=== PATIENT | male | born 1975 | race Caucasian/White ===

== ENCOUNTER 2022-05-08 12:39 | Emergency (ER) | payer BC ==
[~2022-05-08] VITALS: Ht 152.4 cm; Wt 122.7 kg
[~2022-05-08 12:39] MED LIST: NO HOME MEDICATIONS
[2022-05-08 14:46] LABS: COLLECTION METHOD CLEAN CATCH
[2022-05-08 15:01] LABS: MUCOUS Present (NOT PRESENT); SQUAMOUS EPITHELIAL 0-2 /hpf (0-10); URINE BACTERIA None Seen /hpf (NONE SEEN); URINE RBC 0-2 /hpf (0-2)
[2022-05-08 15:02] LABS: URINE APPEARANCE Clear (CLEAR/HAZY); URINE COLOR Yellow (YELLOW)
[2022-05-08 15:03] LABS: URINE BLOOD Negative (NEGATIVE); URINE GLUCOSE Negative (NEGATIVE); URINE KETONE 1+ (NEGATIVE); URINE NITRATE Negative (NEGATIVE); URINE PROTEIN(semi-quant) Negative (NEGATIVE)
[2022-05-08 15:11] LABS: BASO % 0.1 % (0.0-2.0); GRAN # 14.9 K/mm3 (1.4-6.5); GRAN % 86.9 % (42.2-75.2); HEMOGLOBIN 15.6 g/dl (13.5-18.0); LYMPH # 0.9 K/mm3 (1.2-3.4); LYMPH % 5.3 % (20.0-51.0); MEAN CELL VOLUME 88 fl (80.0-100.0); MEAN CORPUSCULAR HEMOGLOBIN 30 pg (27-31); MEAN CORPUSCULAR HGB CONC 34 g/dl (33.0-37.0); MEAN PLATELET VOLUME 12.5 fl (7.4-10.4); MONO # 1.2 K/mm3 (0.1-0.6); MONO % 7.2 % (1.7-9.3); PLATELET COUNT 159 K/mm3 (130-400); RED BLOOD COUNT 5.25 M/mm3 (4.20-5.60)
[2022-05-08 15:23] LABS: ALBUMIN 4.1 gm/dL (3.5-5.0); BILIRUBIN,TOTAL 1.8 mg/dL (0.2-1.2); CALCIUM 9.6 mg/dL (8.4-10.2); CREATININE, serum 0.91 mg/dL (0.72-1.25); POTASSIUM 3.9 mmol/L (3.5-4.5); TOTAL PROTEIN 7.9 gm/dL (6.2-8.1)
[2022-05-08] MEDS ORDERED: CIPRO 500MG TA500 MG PO (16:44)
[2022-05-08] MEDS ORDERED: ROXICODONE 55 MG/TAB PO (16:44)
[2022-05-08] MEDS ORDERED: FLAGYL500 MG PO (16:44)
[2022-05-08 17:40] VITALS: BP 145/61; PULSE 82; TEMP 100.2
== END 2022-05-08 17:45 | disposition home or self-care (01) ==
LOC: COL.ER 12:39
PROVIDERS: Emergency Medicine
DX: K57.92 Diverticulitis of intestine, part unspecified, without perforation or abscess without bleeding (principal); K76.9 Liver disease, unspecified
CPT/HCPCS: J0696; J2270; J7120; Q9967

== ENCOUNTER → 2022-05-14 | Outpatient (CLI) | payer BC ==
[~2022-05-14] MED LIST changes: +CIPRO 500MG TA500 MG PO; +FLAGYL500 MG PO; +ROXICODONE 55 MG/TAB PO
[2022-05-14 12:06] LABS: C-REACTIVE PROTEIN 9.57 mg/dL (0.00-0.50); CALCIUM 9.3 mg/dL (8.4-10.2); CREATININE, serum 0.84 mg/dL (0.72-1.25)
[2022-05-14 13:41] LABS: HEMOGLOBIN 14.1 g/dl (13.5-18.0); MEAN CELL VOLUME 89 fl (80.0-100.0); MEAN CORPUSCULAR HEMOGLOBIN 29 pg (27-31); MEAN CORPUSCULAR HGB CONC 33 g/dl (33.0-37.0); MEAN PLATELET VOLUME 10.8 fl (7.4-10.4); PLATELET COUNT 258 K/mm3 (130-400); RED BLOOD COUNT 4.83 M/mm3 (4.20-5.60)
[2022-05-14 14:07] LABS: EOSINOPHIL 1 % (0-4); LYMPHOCYTE 12 % (20.0-51.0); METAMYELOCYTE 1 % (0-0); NEUTROPHILS 79 % (42.0-75.2)
[2022-05-14 14:08] LABS: HYPOCHROMIA 1+; PLATELET ESTIMATE NORMAL (NORMAL)
[2022-05-16 08:20] LABS: PATHOLOGY DIFF REVIEW OK +
== END ==
LOC: COL.LAB 11:04
PROVIDERS: Surgery
DX: Z01.89 Encounter for other specified special examinations (principal)
CPT/HCPCS: Q9967

== ENCOUNTER → 2022-07-07 | Outpatient (CLI) | payer BC | LOC: COL.RAD 07:24 | DX: K57.32 Diverticulitis of large intestine without perforation or abscess without bleeding (principal); K76.9 Liver disease, unspecified | CPT/HCPCS: Q9967 ==